=== PATIENT | male | born 1945 | race Caucasian/White ===

== ENCOUNTER 2017-07-14 13:02 | Outpatient (CLI) | payer MEDICARE, OTHER ==
[~2017-07-14 13:02] MED LIST: ALDACTONE25 MG PO; CALCIUM PO; CARV12.53 PO; CHOL200018 PO; CLPD75T PO; CYAN10007 PO; FURO40TA4 PO; KCL20TCR PO; KRIL500C PO; MTF500T PO; QUIN40TA PO; SIMV80TA3 PO
== END 2017-07-14 20:10 | disposition home or self-care (01) ==
LOC: SLEEP 13:02
PROVIDERS: ATTEND Family Medicine
DX: G47.33 Obstructive sleep apnea (adult) (pediatric) (principal)
CPT/HCPCS: 95811

== ENCOUNTER 2017-09-27 11:43 | Emergency (ER) | payer OTHER, MEDICARE ==
[~2017-09-27] VITALS: Ht 172.7 cm; Wt 136.1 kg
[2017-09-27 11:50] VITALS: BP 142/70
--- OUTSIDE RECORDS SUMMARY | 2017-09-27 11:50 | XMS REPORT | Continuity of Care Document ---
Author Author [facility] Organization [facility] Address Unknown Phone Unavailable Allergies Active Description Code Type Severity Reaction Onset Reported/Identified Relationship to Patient Clinical Status Yes Penicillins [id number] Drug Allergy Mild RASH 03/05/2011 Medications Problems Date Dx Coded Attending Type Code Diagnosis Diagnosed By 07/06/2017 ORLANDO TRUJILLO MD Ot G47.33 OBSTRUCTIVE SLEEP APNEA (ADULT) ( PEDIATR 07/12/2017 ORLANDO TRUJILLO MD Ot G47.33 OBSTRUCTIVE SLEEP APNEA (ADULT) ( PEDIATR 07/14/2017 ORLANDO TRUJILLO MD Ot G47.33 OBSTRUCTIVE SLEEP APNEA (ADULT) ( PEDIATR 08/19/2017 Ot 272.4 HYPERLIPIDEMIA NEC/NOS 08/19/2017 HOLLEY ALBARRAN MD Ot 272.4 HYPERLIPIDEMIA NEC/NOS Procedures Results Encounters ACCT No. Visit Date/Time Discharge Status Pt. Type Provider Facility Loc./Unit Complaint [id number] 09/01/2017 12:29:00 2016 23:59:59 CLS Preadmit ORLANDO TRUJILLO MD [facility] SLEEP DEBBIE [id number] 07/26/2017 12:07:00 2016 23:59:59 CLS Preadmit ORLANDO TRUJILLO MD [facility] SLEEP DEBBIE,SNORING [id number] 07/14/2017 13:02:00 2016 20:10:00 DIS Outpatient ORLANDO TRUJILLO MD [facility] SLEEP OBSTRUCTIVE SLEEP APNEA [id number] 08/29/2013 04:51:00 2012 23:59:59 CLS Outpatient HOLLEY ALBARRAN MD [facility] LAB HYPERLIPIDEMIA [id number] 05/15/2012 02:26:00 Document Registration
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
[2017-09-27 12:07] LABS: BASOPHILS % (AUTO) 0 % (0-10); EOSINOPHILS # (AUTO) 0.1 10^3/uL (0.0-0.3); EOSINOPHILS % (AUTO) 1 % (0-10); LYMPHOCYTES # (AUTO) 1.3 X 10^3 (1.0-4.0); LYMPHOCYTES % (AUTO) 14 % (12-44); MEAN CORPUSCULAR HEMOGLOBIN 31 PG (25-34); MEAN CORPUSCULAR HGB CONC 32 G/DL (32-36); MEAN CORPUSCULAR VOLUME 95 FL (80-99); MEAN PLATELET VOLUME 12.4 FL (7.4-10.4); MONOCYTES # (AUTO) 0.6 X 10^3 (0.0-1.0); MONOCYTES % (AUTO) 6 % (0-12); NEUTROPHILS # (AUTO) 7.2 X 10^3 (1.8-7.8); NEUTROPHILS % (AUTO) 79 % (42-75); PLATELET COUNT 122 10^3/uL (130-400); RED CELL DISTRIBUTION WIDTH 14.3 % (10.0-14.5); WHITE BLOOD COUNT 9.2 10^3/uL (4.3-11.0)
[2017-09-27 12:24] LABS: ALANINE AMINOTRANSFERASE 13 U/L (0-55); ALBUMIN 4.1 GM/DL (3.2-4.5); ANION GAP 8 MMOL/L (5-14); ASPARTATE AMINO TRANSFERASE 13 U/L (5-34); BILIRUBIN,TOTAL 0.6 MG/DL (0.1-1.0); BLOOD UREA NITROGEN 7 MG/DL (7-18); BUN/CREATININE RATIO 8; CALCIUM 10.3 MG/DL (8.5-10.1); CARBON DIOXIDE 31 MMOL/L (21-32); CHLORIDE 99 MMOL/L (98-107); CREATININE SERUM 0.83 MG/DL (0.60-1.30); GFR ESTIMATED > 60; GLUCOSE 144 MG/DL (70-105); POTASSIUM 4.5 MMOL/L (3.6-5.0); SODIUM 138 MMOL/L (135-145); TOTAL PROTEIN 7.9 GM/DL (6.4-8.2)
[2017-09-27] MEDS ORDERED: IOHEXOL 350 MG/ML 100 ML (OMNIPAQUE 350) VIAL IV ONE (12:30)
[2017-09-27] MEDS ORDERED: NS 100 ML (IVPB) BAG IV ONE (12:30)
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
[2017-09-27] MEDS ORDERED: HYDR-757 PO (13:50)
== END 2017-09-27 14:00 | disposition home or self-care (01) ==
LOC: EDUNIT# 11:43 → ER 11:45
DX: S30.1XXA Contusion of abdominal wall, initial encounter (principal); Z79.84 Long term (current) use of oral hypoglycemic drugs; V68.5XXA Driver of heavy transport vehicle injured in noncollision transport accident in traffic accident, initial encounter; Y92.410 Unspecified street and highway as the place of occurrence of the external cause
CPT/HCPCS: 36415; 70450; 71260; 74177; 80053; 85025; 99282

== ENCOUNTER → 2018-04-19 | Outpatient (CLI) | payer MEDICARE ==
[~2018-04-19] MED LIST changes: +HYDR-757 PO
== END ==
LOC: RAD 13:38
PROVIDERS: ATTEND Orthopaedic Surgery
DX: Z53.8 Procedure and treatment not carried out for other reasons (principal); M25.511 Pain in right shoulder

== ENCOUNTER → 2019-02-22 | Outpatient (CLI) | payer MEDICARE ==
[~2019-02-22] MED LIST changes: +HYDR-4226 PO; -HYDR-757 PO
[2019-02-22 17:17] LABS: ABG BASE EXCESS 7.8 MMOL/L (-2.5-2.5); ABG OXYGEN SATURATION 92 % (94-100); ABG PCO2 49 MMHG (35-45); ABG PH 7.43 (7.37-7.43); ABG PO2 53 MMHG (79-93); ABG TCO2 33.9 MMOL/L (21.0-31.0); ALLENS TEST POSITIVE; PATIENT TEMP 97.3; VENTILATOR NO
== END ==
LOC: LAB 16:48
PROVIDERS: ATTEND Nurse Practitioner Family
DX: J44.9 Chronic obstructive pulmonary disease, unspecified (principal); F17.290 Nicotine dependence, other tobacco product, uncomplicated
CPT/HCPCS: 36600; 82805

== ENCOUNTER → 2020-06-04 | Outpatient (CLI) | payer OTHER, MEDICARE ==
[2020-06-04 08:08] LABS: ABSOLUTE RETIC # 57 10e9/L (24-90); RETICULOCYTE % 1.17 % (0.50-2.40)
[2020-06-04 08:28] LABS: BAND NEUTROPHILS 0 %; LYMPHOCYTES % (MANUAL) 19 %; NEUTROPHILS % (MANUAL) 78 %
[2020-06-04 08:29] LABS: BASOPHILS % (MANUAL) 1 %; EOSINOPHILS % (MANUAL) 0 %; MONOCYTES % (MANUAL) 2 %; RBC MORPH NORMAL
== END ==
LOC: LABNPT 07:59
PROVIDERS: ATTEND Family Medicine
DX: D69.6 Thrombocytopenia, unspecified (principal)
CPT/HCPCS: 85007; 85045

== ENCOUNTER 2021-01-12 12:07 | Emergency (ER) | payer MEDICARE ==
[~2021-01-12] VITALS: Ht 187.9 cm; Wt 149.7 kg
[2021-01-12 12:29] LABS: BASOPHILS % (AUTO) 0 % (0-10); EOSINOPHILS # (AUTO) 0.1 10^3/uL (0.0-0.3); EOSINOPHILS % (AUTO) 1 % (0-10); HEMATOCRIT 41 % (40-54); HEMOGLOBIN 12.7 g/dL (13.3-17.7); LYMPHOCYTES # (AUTO) 1.4 10^3/uL (1.0-4.0); LYMPHOCYTES % (AUTO) 15 % (12-44); MEAN CORPUSCULAR HEMOGLOBIN 31 pg (25-34); MEAN CORPUSCULAR HGB CONC 31 g/dL (32-36); MEAN CORPUSCULAR VOLUME 99 fL (80-99); MONOCYTES # (AUTO) 0.7 10^3/uL (0.0-1.0); MONOCYTES % (AUTO) 7 % (0-12); NEUTROPHILS # (AUTO) 7.1 10^3/uL (1.8-7.8); NEUTROPHILS % (AUTO) 76 % (42-75); PLATELET COUNT 166 10^3/uL (130-400); WHITE BLOOD COUNT 9.4 10^3/uL (4.3-11.0)
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
[2021-01-12] MEDS ORDERED: MECLIZINE 25 MG (ANTIVERT) TAB PO ONE (12:30)
[2021-01-12 12:41] LABS: ALBUMIN 3.7 GM/DL (3.2-4.5); CHLORIDE 98 MMOL/L (98-107); POTASSIUM 4.6 MMOL/L (3.6-5.0); SODIUM 139 MMOL/L (135-145)
[2021-01-12 12:42] LABS: CALCIUM 9.7 MG/DL (8.5-10.1)
[2021-01-12 12:43] LABS: GLUCOSE 144 MG/DL (70-105); TOTAL PROTEIN 7.7 GM/DL (6.4-8.2)
[2021-01-12 12:44] LABS: CARBON DIOXIDE 32 MMOL/L (21-32)
[2021-01-12 12:45] LABS: BILIRUBIN,TOTAL 0.4 MG/DL (0.1-1.0)
[2021-01-12 12:47] LABS: ALKALINE PHOSPHATASE 68 U/L (40-136); CREATININE SERUM 0.99 MG/DL (0.60-1.30); GFR ESTIMATED > 60
[2021-01-12 12:48] LABS: BUN/CREATININE RATIO 16
[2021-01-12 12:50] LABS: ALANINE AMINOTRANSFERASE 16 U/L (0-55)
--- NOTE | 2021-01-12 12:54 | Diagnostic Imaging Report ---
PROCEDURE: CT head without contrast. TECHNIQUE: Multiple contiguous axial images were obtained through the brain without the use of intravenous contrast. Auto Exposure Controls were utilized during the CT exam to meet ALARA standards for radiation dose reduction. INDICATION: Dizziness. Compared with head CT 09/27/2017. FINDINGS: There is no intracranial hemorrhage. There is no hydrocephalus, edema, mass or mass effect. Cerebral cortical volume unremarkable for age. Orbits and calvarium nonacute. There is extensive lobular membrane thickening of the maxillary greater than ethmoid air cells bilaterally. The mastoid air cells are clear. No air-fluid level. IMPRESSION: Stable unremarkable appearance of the brain, extensive chronic-appearing paranasal sinus membrane disease without air-fluid level.\ Dictated by: Dictated on workstation # [id number]
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
[2021-01-12] MEDS ORDERED: MECL-149 PO (13:47)
[2021-01-12 14:05] VITALS: BP 120/54
== END 2021-01-12 14:05 | disposition home or self-care (01) ==
LOC: EDUNIT# 12:07 → ER 12:09
DX: R42 Dizziness and giddiness (principal); E66.9 Obesity, unspecified; Z20.822 Contact with and (suspected) exposure to COVID-19; Z68.45 Body mass index [BMI] 70 or greater, adult; Z88.0 Allergy status to penicillin
CPT/HCPCS: 70450; 71045; 80053; 83880; 85025; 85379; U0002; 36415; 87635; 93005

== ENCOUNTER 2021-06-29 09:34 | Outpatient (RCR) | payer MEDICARE, OTHER ==
[~2021-06-29 09:34] MED LIST changes: +MECL-149 PO
== END 2021-06-30 | disposition home or self-care (01) ==
LOC: CR 09:34
PROVIDERS: ATTEND Internal Medicine Cardiovascular Disease
DX: I47.2 Ventricular tachycardia (principal); Z95.5 Presence of coronary angioplasty implant and graft
CPT/HCPCS: 82947; 93798

== ENCOUNTER → 2021-07-10 | Outpatient (CLI) | payer MEDICARE, OTHER | LOC: LABNPT 06:00 | PROVIDERS: ATTEND Otolaryngology Otolaryngology/Facial Plastic Surgery | DX: U07.1 COVID-19 (principal) | CPT/HCPCS: 87635 ==

== ENCOUNTER 2021-07-29 10:55 | Outpatient (CLI) | payer MEDICARE, OTHER | END 2021-07-29 11:15 | LOC: SLEEP 10:55 | PROVIDERS: ATTEND Otolaryngology Otolaryngology/Facial Plastic Surgery | DX: G47.33 Obstructive sleep apnea (adult) (pediatric) (principal) | CPT/HCPCS: G0399 ==

== ENCOUNTER → 2021-08-06 | Outpatient (CLI) | payer MEDICARE, OTHER | LOC: LABNPT 08:19 | PROVIDERS: ATTEND Otolaryngology Otolaryngology/Facial Plastic Surgery | DX: Z20.822 Contact with and (suspected) exposure to COVID-19 (principal); G47.33 Obstructive sleep apnea (adult) (pediatric) | CPT/HCPCS: 87635 ==

== ENCOUNTER 2021-08-31 11:26 | Outpatient (RCR) | payer MEDICARE, OTHER | END 2021-09-29 | disposition home or self-care (01) | LOC: CR 11:26 | PROVIDERS: ATTEND Internal Medicine Cardiovascular Disease | DX: I47.2 Ventricular tachycardia (principal); Z95.5 Presence of coronary angioplasty implant and graft | CPT/HCPCS: 82947; 93798 ==

== ENCOUNTER → 2021-08-31 | Outpatient (CLI) | payer MEDICARE, OTHER ==
--- NOTE | 2021-08-31 10:11 | Diagnostic Imaging Report ---
EXAMINATION: CT chest without contrast (lung screening). TECHNIQUE: Multiple contiguous axial images were obtained through the chest without the use of intravenous contrast according to lung cancer screening protocol. All CT scans use one or more of the following dose optimizing techniques: automated exposure control, MA and/or KvP adjustment based on patient size and exam type or iterative reconstruction. HISTORY: 128 pack year history of smoking. COMPARISON: 09/27/2017 FINDINGS: There is no edema or pneumonia. No pleural effusion. No pneumothorax. There is a new 14 x 13 mm nodule in the left upper lobe. Lungs are moderately emphysematous There is no axillary or supraclavicular lymphadenopathy. There is no mediastinal lymphadenopathy. Heart size is normal. There are severe coronary artery calcifications. No pericardial effusion. Aorta is normal in caliber. Limited views of the upper abdomen are unremarkable. There are no suspicious osseus lesions. IMPRESSION: 1. New 14 x 13 mm irregular nodule in the left upper lobe. PET/CT or three-month followup CT is recommended. LUNG-RADS CATEGORY: 4a MODIFIER: None. Dictated by: Dictated on workstation # [id number]
== END ==
PROVIDERS: ATTEND Internal Medicine Critical Care Medicine
DX: Z12.2 Encounter for screening for malignant neoplasm of respiratory organs (principal); J43.9 Emphysema, unspecified; J84.10 Pulmonary fibrosis, unspecified; R91.1 Solitary pulmonary nodule; F17.210 Nicotine dependence, cigarettes, uncomplicated
CPT/HCPCS: 71271

== ENCOUNTER 2021-09-04 13:20 | Outpatient (RCR) | payer MEDICARE | END 2021-10-04 | LOC: CR3 13:20 | PROVIDERS: ATTEND Internal Medicine Cardiovascular Disease | DX: Z29.8 Encounter for other specified prophylactic measures (principal) ==

== ENCOUNTER → 2021-10-20 | Outpatient (CLI) | payer MEDICARE ==
--- NOTE | 2021-10-20 14:23 | Diagnostic Imaging Report ---
INDICATION: Left upper lobe lung nodule. TECHNIQUE: Serum blood glucose level at the time of injection was 132 mg/dL. Patient was administered 14.1 mCi F-18 FDG intravenously in the right antecubital location, and PET imaging was performed from the top of the skull to mid thighs. Noncontrast CT was also performed for attenuation correction and anatomic correlation. COMPARISON: Correlation is made with CT chest screening study performed 08/31/2021. FINDINGS: There is symmetric activity throughout the brain. Soft tissues of the neck are unremarkable. No mediastinal or hilar hypermetabolism is identified. No pulmonary parenchymal hypermetabolism is identified. Specifically, the irregular nodule in the left upper lobe does not show FDG avidity. This does appear to be slightly less prominent on today's study when compared with the low-dose chest CT from 08/31/2021. There is physiologic activity throughout the gastrointestinal and genitourinary tracts of the abdomen and pelvis. No suspicious hypermetabolism is identified. IMPRESSION: Unremarkable PET/CT study. Specifically, the nodule in the left upper lobe does not demonstrate FDG avidity. Close CT follow-up is recommended to confirm stability. Dictated by: Dictated on workstation # [id number]
== END ==
LOC: RAD 11:15
PROVIDERS: ATTEND Internal Medicine Critical Care Medicine
DX: R91.1 Solitary pulmonary nodule (principal); F17.200 Nicotine dependence, unspecified, uncomplicated
CPT/HCPCS: 78815; A9552

== ENCOUNTER → 2022-01-26 | Outpatient (CLI) | payer MEDICARE ==
--- NOTE | 2022-01-26 10:56 | Diagnostic Imaging Report ---
EXAMINATION: CT chest without contrast. TECHNIQUE: Multiple contiguous axial images were obtained through the chest without the use of intravenous contrast. All CT scans use one or more of the following dose optimizing techniques: automated exposure control, MA and/or KvP adjustment based on patient size and exam type or iterative reconstruction. HISTORY: Lung nodule. COMPARISON: 08/31/2021. FINDINGS: There is no edema or pneumonia. No pleural effusion. No pneumothorax. The 1.3 x 1.1 cm nodule in the left upper lobe is unchanged. Lungs are moderately emphysematous. There is no axillary or supraclavicular lymphadenopathy. There is no mediastinal lymphadenopathy. Heart size is normal. There are severe coronary artery calcifications. No pericardial effusion. Aorta is normal in caliber. Limited views of the upper abdomen show a 6.3 x 5.0 cm left adrenal myelolipoma. There are no suspicious osseous lesions. IMPRESSION: 1. Stable left upper lobe nodule. Six months to one-year follow-up recommended. Dictated by: Dictated on workstation # [id number]
== END ==
LOC: RAD 10:15
PROVIDERS: ATTEND Internal Medicine Critical Care Medicine
DX: R91.1 Solitary pulmonary nodule (principal); Z87.891 Personal history of nicotine dependence
CPT/HCPCS: 71250

== ENCOUNTER → 2022-07-29 | Outpatient (CLI) | payer MEDICARE ==
--- NOTE | 2022-07-29 14:38 | Diagnostic Imaging Report ---
PROCEDURE: CT chest without contrast. TECHNIQUE: Multiple contiguous axial images were obtained through the chest without the use of intravenous contrast. Auto Exposure Controls were utilized during the CT exam to meet ALARA standards for radiation dose reduction. INDICATION: 77-year-old male, pulmonary nodules, follow-up. CORRELATION STUDY: CT chest 09/27/2017-01/26/2022. FINDINGS: Heart size normal with scattered coronary calcification. Thoracic aorta relatively normal in contour with mild wall calcification. Scattered small shotty mediastinal lymph nodes. There is advanced centrilobular emphysematous change about the lung parenchyma. No infiltrate. 1.3 x 0.9 cm spiculated nodule left upper lobe overall relatively stable. Additional scattered micronodules are also noted. Visualized portion of demonstrates a 6.4 cm largely macroscopic fat left adrenal myelolipoma. Probable nonobstructing bilateral renal stones. IMPRESSION: 1. Left upper lobe nodule appears generally stable. Superimposed on rather advanced emphysematous lung disease. Possibility of neoplasm does remain in the differential. Follow-up CT imaging in 6-12 months. Dictated by: Dictated on workstation # [id number]
== END ==
LOC: RAD 10:15
PROVIDERS: ATTEND Internal Medicine Critical Care Medicine
DX: R91.8 Other nonspecific abnormal finding of lung field (principal); Z87.891 Personal history of nicotine dependence
CPT/HCPCS: 71250

== ENCOUNTER 2023-04-12 20:31 | Emergency (ER) | payer MEDICARE ==
[~2023-04-12] VITALS: Ht 188 cm; Wt 140.6 kg
--- NOTE | 2023-04-12 21:20 | ED Trauma-Multisystem ---
General Chief Complaint: Trauma-Non Activation Stated Complaint: FALL|RIB PAIN|LEFT SIDED PAIN Nursing Triage Note: PT AMB TO RM 3 W PERSONAL CANE W C/O LEFT RIB PAIN D/T FALL AT APPROX [id number] THIS AM. PT REPORTS HE WAS GETTING INTO HIS TRUCK WHEN HIS FOOT SLIPPED AND HE FELL LANDING ON LEFT RIB AREA, PT C/O PAIN W DEEP BREATHING, HIT HEAD, DENIES LOC. PT A&OX4. Source of Information: Patient Exam Limitations: No Limitations History of Present Illness Date Seen by Provider: April 12, 2023 Time Seen by Provider: 21:10 Initial Comments 78-year-old male presents to the ED with complaints of left rib pain. He states that this morning around 10 or 10:30 AM he was trying to get into his truck by stepping on a milk crate which slipped from under him causing him to land on his left side. He denies any abdominal pain. He reports pain is worse with deep inspiration. Patient reports he also hit the back of his head. Denies loss of consciousness. Denies head pain at this time. Denies any dizziness since the injury. Patient does take aspirin daily. Location Injury Occurred: PT HOME Allergies and Home Medications Allergies Coded Allergies: Penicillins (Unverified Adverse Reaction, Mild, RASH, 03/05/11) Patient Home Medication List Home Medication List Reviewed: Yes Carvedilol (Carvedilol) 12.5 Mg Tablet, 1 TAB PO BID, (Reported) Entered as Reported by: JUDIE MORALES on 03/05/112125 Cholecalciferol (Vitamin D3) (Vitamin D-3) 2,000 Unit Capsule, 1 TAB PO DAILY, (Reported) Entered as Reported by: JUDIE MORALES on 03/05/112125 Clopidogrel (Plavix) 75 Mg Tablet, 1 TAB PO DAILY, (Reported) Entered as Reported by: JUDIE MORALES on 03/05/112125 Cyanocobalamin (Vitamin B12) 1,000 Mcg Tablet.sa, 2,000 MCG PO DAILY, (Reported) Entered as Reported by: JUDIE MORALES on 03/05/112125 Furosemide (Furosemide) 40 Mg Tablet, 1 TAB PO BID, (Reported) Entered as Reported by: JUDIE MORALES on 03/05/112125 Hydrocodone/Acetaminophen (Hydrocodone/Acetaminophen 5 MG/325 MG TAB) 1 Each Tablet, 1 EACH PO Q4H PRN for PAIN-MODERATE TO SEVERE Prescribed by: GENARO DAS on 09/27/17 1350 Krill Oil (Krill Oil) 500 Mg Capsule, 1 TAB PO DAILY, (Reported) Entered as Reported by: JUDIE MORALES on 03/05/112125 Meclizine HCl (Meclizine HCl) 25 Mg Tablet, 25 MG PO TID PRN for DIZZINESS Prescribed by: GENARO DAS on 01/12/21 1347 Metformin Hcl (Metformin 500 Mg) 500 Mg Tablet, 1 TAB PO BID, (Reported) Entered as Reported by: JUDIE MORALES on 03/05/112125 Potassium Chloride (Klor-Con M20) 20 Meq Tab.prt.sr, 1 TAB PO BID, (Reported) Entered as Reported by: JUDIE MORALES on 03/05/112125 Quinapril Hcl (Accupril) 40 Mg Tablet, 1 TAB PO DAILY, (Reported) Entered as Reported by: JUDIE MORALES on 03/05/112125 Simvastatin (Simvastatin) 80 Mg Tablet, 1 TAB PO HS, (Reported) Entered as Reported by: JUDIE MORALES on 03/05/112125 Spironolactone (Aldactone) 25 Mg Tablet, 1 TAB PO DAILY, (Reported) Entered as Reported by: JUDIE MORALES on 03/05/112125 [Calcium] , 60 MG PO DAILY, (Reported) Entered as Reported by: JUDIE MORALES on 03/05/112125 Review of Systems Review of Systems Constitutional: no symptoms reported Respiratory: other (Pain with deep breath) Gastrointestinal: no symptoms reported Past Tuxedff-Sczssy-Taneyp Hx Patient Social History Tobacco Use?: Yes Tobacco type used: Cigarettes Smoking Status: Current Everyday Smoker Use of E-Cig and/or Vaping dev: No Substance use?: No Alcohol Use?: No Immunizations Up To Date Tetanus Booster (TDap): Unknown PED Vaccines UTD: Yes Influenza Vaccine Up-to-Date: Yes; Up-to-Date First/Initial COVID19 Vaccinat: 2020 Second COVID19 Vaccination Babak: 2020 Third COVID19 Vaccination Date: 2020 COVID19 Vaccine [employer] Technician: MODERNA X4 Past Medical History Surgeries: No Respiratory: No Cardiac: Yes Neurological: Yes Reproductive Disorders: No Gastrointestinal: No Endocrine: Yes Psychosocial: No Blood Disorders: No Physical Exam Vital Signs Vital Signs - First Documented 04/12/23 20:56 Temp 36.4 Pulse 64 Resp 22 B/P (MAP) 181/80 (113) Pulse Ox 92 O2 Delivery Room Air Height, Weight, BMI Height: 5'8.00" Weight: 300lbs. oz. 136.052232an; 39.00 BMI Method:Estimated General Appearance: No Apparent Distress, WD/WN Head: No Evidence of Injury Eyes: Bilateral Eye PERRL Ears, Nose, Throat: Hearing Grossly Normal Neck: Full Range of Motion, Normal Inspection, Supple Cardiovascular: Regular Rate, Rhythm Respiratory: No Accessory Muscle Use, No Respiratory Distress, Decreased Breath Sounds Gastrointestinal: Non Tender, Soft Neurologic/Psychiatric: Alert, Normal Mood/Affect Skin: Normal Color, Warm/Dry Progress/Results/Core Measures Results/Orders My Orders Orders - GERBER LUA APRN Ribs, Left 2-3 Views (04/12/23 21:17) Ct Head/Cervical Spine Wo (04/12/23 21:17) Vital Signs/I&O 04/12/23 20:56 Temp 36.4 Pulse 64 Resp 22 B/P (MAP) 181/80 (113) Pulse Ox 92 O2 Delivery Room Air Blood Pressure Mean: 113 Progress Progress Note : Progress Note Patient seen and evaluated, resting comfortably in bed, no acute distress. Based on exam and symptoms, x-ray of left ribs, CT head and neck ordered. Departure Impression Primary Impression: Fall Additional Impression: Contusion of rib on left side Disposition: 01 HOME, SELF-CARE Condition: Stable Departure-Patient Inst. Decision time for Depature: 21:54 Referrals: [facility] (PCP/Family) Primary Care Physician Patient Instructions: Rib Fracture or Bruised Rib ED Add. Discharge Instructions: Make sure you are taking deep breaths and coughing forcefully to prevent pneumonia. Use a pillow held tightly against your left ribs when you are coughing or sneezing to help with pain. You may take Tylenol as needed for pain. Follow-up with your primary care provider if symptoms not improved. Return for severe headache, dizziness, abnormal behavior, numbness or tingling, weakness, or any other new, concerning, or worsening symptoms. All discharge instructions reviewed with patient and/or family. Voiced unde rstanding. GERBER LUA PATTERN CHART WRITER April 12, 2023 21:19
--- NOTE | 2023-04-12 21:37 | Diagnostic Imaging Report ---
PROCEDURE: CT head and CT cervical spine without contrast. TECHNIQUE: Multiple contiguous axial images were obtained through the brain and cervical spine without the use of intravenous contrast. Sagittal and coronal reformations through the cervical spine were then performed. Auto Exposure Controls were utilized during the CT exam to meet ALARA standards for radiation dose reduction. INDICATION: Fall. Head and neck pain. COMPARISON: 01/12/2021. FINDINGS: CT head: No large acute territorial ischemia, mass, or hemorrhage. No midline shift or mass effect. The ventricles, cortical sulci, and basilar cisterns are patent and unremarkable. The calvarium is intact. Mucosal thickening is seen in the bilateral maxillary and ethmoid sinuses. The mastoid air cells are clear. CT cervical spine: No acute fracture or dislocation is seen in the cervical spine. No focal osseous lesions. Vertebral body heights are well-maintained. The craniocervical junction is well-maintained. Mild degenerative changes are seen in the cervical spine with disc osteophyte complexes and uncovertebral arthropathy. Soft tissues of the neck are unremarkable. Centrilobular emphysema is seen in the lung apices. IMPRESSION: 1. No hemorrhage or focal intra-axial mass. No CT evidence of large acute territorial ischemia. 2. No acute fracture or dislocation in the cervical spine. 3. Paranasal sinus disease. Dictated by: Dictated on workstation # [id number]
--- NOTE | 2023-04-12 21:48 | Diagnostic Imaging Report ---
Patient History: Left-sided rib pain. Fall.. Technique: 3 views of the left ribs are obtained. Comparison: 07/29/2022. FINDINGS: The lung volumes are normal. No focal consolidation is seen. No large pleural effusion or pneumothorax is seen. The cardiomediastinal silhouette is normal in size and contour. No acute osseous abnormality is seen. No acute displaced left-sided rib fractures. IMPRESSION: 1. No acute process in the chest. 2. No acute displaced left-sided rib fractures. Dictated by: Dictated on workstation # [id number]
[2023-04-12 22:03] VITALS: BP 156/79
== END 2023-04-12 22:03 | disposition home or self-care (01) ==
LOC: EDUNIT# 20:31 → ER 20:33
DX: S20.212A Contusion of left front wall of thorax, initial encounter (principal); F17.210 Nicotine dependence, cigarettes, uncomplicated; Z79.82 Long term (current) use of aspirin; W01.198A Fall on same level from slipping, tripping and stumbling with subsequent striking against other object, initial encounter
CPT/HCPCS: 70450; 71100; 72125

== ENCOUNTER 2023-04-19 08:12 | Emergency (ER) | payer MEDICARE ==
[~2023-04-19] VITALS: Ht 187 cm; Wt 140.0 kg
--- NOTE | 2023-04-19 08:26 | ED Fall/Injury ---
General Chief Complaint: Trauma-Non Activation Stated Complaint: FALL | LT SIDE PAIN Nursing Triage Note: PT AMB TO RM 5, PT FELL OUT OF TRUCK ON TUESDAY AM, WAS SEEN IN ED. PT STATES PAIN IN L RIBS JUST KEEPS GETTING WORSE. PT RATES PAIN 10/10. PT STATES COUGHING MAKES WORSE Source: patient, family () History of Present Illness Date Seen by Provider: April 19, 2023 Time Seen by Provider: 08:19 Initial Comments 78-year-old male presents emergency department with continued left anterior rib pain. He states he fell on 04/12 while getting out of his truck. He was evaluated at that time a chest x-ray showed no rib fractures. He continues to have pain that he rates as 10/10, especially worse with coughing. No fevers or chills. No shortness of breath but hurts to take a deep breath. He has not really been taking anything for pain. All other systems reviewed and negative except documented per HPI. Voice recognition software was used to help create this chart Allergies and Home Medications Allergies Coded Allergies: Penicillins (Unverified Adverse Reaction, Mild, RASH, 03/05/11) Patient Home Medication List Home Medication List Reviewed: Yes Carvedilol (Carvedilol) 12.5 Mg Tablet, 1 TAB PO BID, (Reported) Entered as Reported by: JUDIE MORALES on 03/05/112125 Cholecalciferol (Vitamin D3) (Vitamin D-3) 2,000 Unit Capsule, 1 TAB PO DAILY, (Reported) Entered as Reported by: JUDIE MORALES on 03/05/112125 Clopidogrel (Plavix) 75 Mg Tablet, 1 TAB PO DAILY, (Reported) Entered as Reported by: JUDIE MORALES on 03/05/112125 Cyanocobalamin (Vitamin B12) 1,000 Mcg Tablet.sa, 2,000 MCG PO DAILY, (Reported) Entered as Reported by: JUDIE MORALES on 03/05/112125 Furosemide (Furosemide) 40 Mg Tablet, 1 TAB PO BID, (Reported) Entered as Reported by: JUDIE MORALES on 03/05/112125 Hydrocodone/Acetaminophen (Hydrocodone/Acetaminophen 5 MG/325 MG TAB) 1 Each Tablet, 1 EACH PO Q4H PRN for PAIN-MODERATE TO SEVERE Prescribed by: GENARO DAS on 09/27/17 1350 Krill Oil (Krill Oil) 500 Mg Capsule, 1 TAB PO DAILY, (Reported) Entered as Reported by: JUDIE MORALES on 03/05/112125 Meclizine HCl (Meclizine HCl) 25 Mg Tablet, 25 MG PO TID PRN for DIZZINESS Prescribed by: GENARO DAS on 01/12/21 1347 Metformin Hcl (Metformin 500 Mg) 500 Mg Tablet, 1 TAB PO BID, (Reported) Entered as Reported by: JUDIE MORALES on 03/05/112125 Potassium Chloride (Klor-Con M20) 20 Meq Tab.prt.sr, 1 TAB PO BID, (Reported) Entered as Reported by: JUDIE MORALES on 03/05/112125 Quinapril Hcl (Accupril) 40 Mg Tablet, 1 TAB PO DAILY, (Reported) Entered as Reported by: JUDIE MORALES on 03/05/112125 Simvastatin (Simvastatin) 80 Mg Tablet, 1 TAB PO HS, (Reported) Entered as Reported by: JUDIE MORALES on 03/05/112125 Spironolactone (Aldactone) 25 Mg Tablet, 1 TAB PO DAILY, (Reported) Entered as Reported by: JUDIE MORALES on 03/05/112125 [Calcium] , 60 MG PO DAILY, (Reported) Entered as Reported by: JUDIE MORALES on 03/05/112125 Review of Systems Review of Systems Constitutional: see HPI Past Kjilhpm-Rdsyhi-Dnspaz Hx Patient Social History Tobacco Use?: Yes Tobacco type used: Cigarettes Smoking Status: Current Everyday Smoker Substance use?: No Alcohol Use?: No Pt feels they are or have been: No Immunizations Up To Date Tetanus Booster (TDap): Unknown PED Vaccines UTD: Yes Influenza Vaccine Up-to-Date: Yes; Up-to-Date First/Initial COVID19 Vaccinat: 2020 Second COVID19 Vaccination Babak: 2020 Third COVID19 Vaccination Date: 2020 Past Medical History Surgery/Hospitalization HX: COPD Surgeries: No Respiratory: No Cardiac: Yes Neurological: Yes Reproductive Disorders: No Gastrointestinal: No Endocrine: Yes Psychosocial: No Blood Disorders: No Physical Exam Vital Signs Vital Signs - First Documented 04/19/23 04/19/23 08:15 08:25 Temp 36.9 Pulse 63 Resp 20 B/P (MAP) 111/56 (74) Pulse Ox 93 O2 Delivery Nasal Cannula O2 Flow Rate 3.00 Capillary Refill : Height, Weight, BMI Height: 5'8.00" Weight: 300lbs. oz. 136.421874tn; 40.00 BMI Method:Estimated General Appearance: WD/WN, no apparent distress HEENT: normal ENT inspection, pharynx normal Neck: non-tender, full range of motion, supple, normal inspection Cardiovascular: regular rate, rhythm, no murmur Respiratory: no respiratory distress, no accessory muscle use, other (Tenderness to palpation left superior anterior chest wall. No inferior tenderness. No abdominal tenderness. No crepitus or deformity. No bruising. Coarse lung sounds on the left side.) Gastrointestinal: normal bowel sounds, non tender, soft, no organomegaly Neurologic/Psychiatric: alert, normal mood/affect, oriented x 3 Skin: normal color, warm/dry Progress/Results/Core Measures Results/Orders My Orders Orders - JOHN OSPINA DO Chest Pa/Lat (2 View) (04/19/23 08:25) Fentanyl Inj (Sublimaze Injection) (04/19/23 08:30) Medications Given in ED Current Medications Medications Dose Ordered Sig/Xochitl Route Start Time Stop Time Status Last Admin Dose Admin Fentanyl Citrate 50 mcg ONCE ONCE IM 04/19/23 08:30 04/19/23 08:31 DC 04/19/23 08:29 50 MCG Vital Signs/I&O 04/19/23 04/19/23 08:15 08:25 Temp 36.9 Pulse 63 Resp 20 B/P (MAP) 111/56 (74) Pulse Ox 93 O2 Delivery Nasal Cannula O2 Flow Rate 3.00 Blood Pressure Mean: 74 Departure Communication (Admissions) Patient is hemodynamically stable. X-rays again negative. No evidence for pneumonia, atelectasis at this time. No rib fractures or acute bony abnormality. No cardiac abnormality. Discharged home with supportive care. He is given IM fentanyl with significant improvement in his pain. Discharged with p.o. hydrocodone. Impression Primary Impression: Rib pain on left side Disposition: HOME, SELF-CARE Condition: Stable Departure-Patient Inst. Referrals: [facility] (PCP/Family) Primary Care Physician Patient Instructions: Pleuritic Chest Pain ED Add. Discharge Instructions: Take hydrocodone as prescribed as needed. As needed you drowsy. It can also cause constipation so I recommend you take stool softeners while taking it. Be sure to take deep breaths frequently to avoid pneumonia. Return to the emergenc y department for any severe concerns. All discharge instructions reviewed with patient and/or family. Voiced understanding. Scripts Hydrocodone/Acetaminophen (Hydrocodone-Acetamin 5-325 mg) 5 Mg-325 Mg Tablet 1 TAB PO Q4H PRN for PAIN-MODERATE (5-7) for 3 Days, #12 TAB Prov: JOHN OSPINA DO 04/19/23 JOHN OSPINA DO April 19, 2023 08:26
[2023-04-19] MEDS ORDERED: fentaNYL INJ 100 MCG/2 ML AMP IM ONE (08:30)
--- NOTE | 2023-04-19 08:49 | Diagnostic Imaging Report ---
EXAM: CHEST PA/LAT (2 VIEW) INDICATION: Left anterior rib pain. COMPARISON: CT chest 07/29/2022. FINDINGS: Normal heart size and central pulmonary vascularity. Mild atelectasis or infiltrate in the lung bases, greater on the right. No pleural effusion or pneumothorax. No acute osseous findings. IMPRESSION: 1. Mild atelectasis or infiltrate in the lung bases, greater on the right. 2. No acute osseous findings identified. Dictated by: Dictated on workstation # [id number]
[2023-04-19] MEDS ORDERED: ACHD5005 PO (09:07)
[2023-04-19 09:14] VITALS: BP 115/56
== END 2023-04-19 09:14 | disposition home or self-care (01) ==
LOC: EDUNIT# 08:12 → ER 08:15
DX: R07.81 Pleurodynia (principal); F17.210 Nicotine dependence, cigarettes, uncomplicated; W17.89XA Other fall from one level to another, initial encounter
CPT/HCPCS: 71046